=== PATIENT | male | born 1995 | race Two or more races ===

== ENCOUNTER 2025-01-20 11:25 | Emergency (ER) | payer BC, OTHER ==
[~2025-01-20] VITALS: Ht 172.7 cm; Wt 85.0 kg
[2025-01-20] MEDS: SODIUM CHLORIDE 0.9% 1,000 ML IV ONE (12:09)
[2025-01-20] MEDS: ACETAMINOPHEN 325 MG TAB PO ONE (12:10)
[2025-01-20] MEDS: KETOROLAC TROMETH 30 MG/ML 1ML VIAL IV ONE (12:10)
[2025-01-20] MEDS: ONDANSETRON HCL 4 MG/2 ML VIAL IV ONE (12:10)
--- NOTE | 2025-01-20 12:10 | ED.PDOC ---
History of Present Illness HPI Comments 29 year old male presents to the ER with the chief complaint of the fever. Patient reports having had N/V, fever, sore throat, and body aches for the past four days. Patient states on take [id number] medications with no relief and going into the triage for which had a heart rate of 147. Patient notes having family members at home with flu-like symptoms. Social history of occasional alcohol use. Denies any other symptoms at this time. Denies chills, /D, SOB, CP. No other associated symptoms, modifiers, recent injuries or sick contacts present at this time. Chief Complaint: Fever Time Seen by MD: 11:45 Reviewed Notes: Nurses Notes, Medications, Allergies Allergies: Coded Allergies: NO KNOWN ALLERGIES (Unverified , 01/20/25) Information Source: Patient Mode of Arrival: Ambulatory Severity: Moderate Timing: Days Duration: Since onset, Days Prehospital treatment: None Past Medical History PAST MEDICAL HISTORY: Denies Surgical History: Denies all surgeries Family History Family History: Reviewed,noncontributory to illness, Unknown Social History Smoker: Non-Smoker Alcohol: Denies ETOH Use Drugs: Denies Drug Use Lives In: Home Constitutional: reports: fever, others (Body aches); denies: chills, diaphoresis, fatigue, malaise, sweats, weakness EENTM: reports: throat swelling; denies: blurred vision, double vision, ear bleeding, ear discharge, ear drainage, ear pain, ear ringing, eye pain, eye redness, hearing loss, mouth pain, mouth swelling, nasal discharge, nose bleeding, nose congestion, nose pain, photophobia, tearing, throat pain, voice changes, others Respiratory: denies: cough, hemoptysis, orthopnea, SOB at rest, shortness of breath, SOB with excertion, stridor, wheezing, others Cardiovascular: denies: chest pain, dizzy spells, diaphoresis, Dyspnea on exertion, edema, irregular heart beat, left arm pain, lightheadedness, palpitations, PND, syncope, others Gastrointestinal: reports: nausea, vomiting; denies: abdomen distended, abdominal pain, blood streaked bowels, constipated, diarrhea, dysphagia, difficulty swallowing, hematemesis, melena, poor appetite, poor fluid intake, rectal bleeding, rectal pain, others Genitourinary: denies: burning, dysuria, flank pain, frequency, hematuria, incontinence, penile discharge, penile sore, pain, testicle pain, testicle swelling, urgency, others Neurological: denies: dizziness, fainting, headache, left sided numbness, left sided weakness, numbness, paresthesia, pre-existing deficit, right sided numbness, right sided weakness, seizure, speech problems, tingling, tremors, weakness, others Musculoskeletal: denies: back pain, gout, joint pain, joint swelling, muscle pain, muscle stiffness, neck pain, others Integumetry: denies: bruises, change in color, change in hair/nails, dryness, laceration, lesions, lumps, rash, wounds, others Allergic/Immunocompromised: denies: Difficulty Healing, Frequent Infections, Hives, Itching, others Hematologic/Lymphatic: denies: anemia, blood clots, easy bleeding, easy b ruising, swollen glands, others Endocrine: denies: excessive hunger, excessive sweating, excessive thirst, excessive urination, flushing, intolerance to cold, intolerance to heat, unexplained weight gain, unexplained weight loss, others Psychiatric: denies: anxiety, bipolar disorder, depression, hopeless, panic disorder, schizophrenia, sleepless, suicidal, others All Other Systems: Reviewed and Negative Physical Exam Exam Comments Tachycardic, erythema to the left tonsil General Appearance: No Apparent Distress, Normal HEENT: Normal ENT Inspection, Pharynx Normal, TMs Normal Neck: Full Range of Motion, Non-Tender, Normal, Normal Inspection Respiratory: Chest Non-Tender, Lungs Clear, No Accessory Muscle Use, No Respiratory Distress, Normal Breath Sounds Cardiovascular: No Edema, No JVD, No Murmur, No Gallop, Normal Peripheral Pulses, Regular Rate/Rhythm Breast Exam: Deferred Gastrointestinal: No Organomegaly, Non Tender, No Pulsatile Mass, Normal Bowel Sounds, Soft Genitalia: Deferred Pelvic: Deferred Rectal: Deferred Extremities: No calf tenderness, Normal capillary refill, Normal inspection, Normal range of motion, Non-tender, No pedal edema Musculoskeletal : Apperance: Normal Neurologic: Alert, sous chef II-XII nml as Tested, No Motor Deficits, Normal Affect, Normal Mood, No Sensory Deficits Cerebellar Function: Normal Reflexes: Normal Skin: Dry, Normal Color, Warm Lymphatic: No Adenopathy Was a procedure done? Was a procedure done?: No EKG EKG : Pulse Rate (adult): 121 [place]: Normal Cardiac Rhythm: ST Block: None Hypertrophy: None ST: Normal Differential Dx Considerations may include: Viral syndrome, pneumonia, generalized weakness X-Ray, Labs, Meds, VS Vital Signs Date Time Temp Pulse Resp B/P (MAP) Pulse Ox O2 Delivery O2 Flow Rate FiO2 01/20/25 15:29 98.6 99 18 127/87 (100) 98 98.6 01/20/25 12:17 Room Air* 0 21 01/20/25 12:16 102.3 126 20 145/97 (113) 98 102.3 01/20/25 12:10 102.3 01/20/25 12:10 121 01/20/25 11:50 121 01/20/25 11:26 98.5 147 18 161/102 100 98.5 Lab Test 01/20/25 12:20 Range/Units Influenza Type A Antigen Negative Negative Influenza Type B Antigen Negative Negative Current Medications Medications (Trade) Dose Ordered Sig/Sonu Route Start Time Stop Time Status Last Admin Sodium Chloride 1,000 ml @ 1,000 mls/hr Q1H ONCE IV 01/20/25 12:00 01/20/25 12:59 DC 01/20/25 12:09 Ondansetron HCl (Zofran) 4 mg ONCE ONCE IV 01/20/25 12:00 01/20/25 12:01 DC 01/20/25 12:10 Ketorolac Tromethamine (Toradol Injection) 15 mg ONCE ONCE IV 01/20/25 12:00 01/20/25 12:01 DC 01/20/25 12:10 Acetaminophen (Tylenol Tablet) 650 mg ONCE ONCE PO 01/20/25 12:00 01/20/25 12:01 DC 01/20/25 12:10 Dexamethasone Sodium Phosphate (Decadron Injection) 10 mg ONCE ONCE IV 01/20/25 12:00 01/20/25 12:01 DC 01/20/25 12:10 Time of 1ST Reevaluation: 12:15 Reevaluation 1ST: Unchanged Patient Education/Counseling: Diagnosis, Treatment, Prognosis Family Education/Counseling: No Family Present SEPSIS Sepsis Screen Date sepsis recognized/suspect: Jan 20, 2025 Time Sepsis recognized/suspect: 1129 Recent Procedure: No On Antibiotic Therapy: No Respiratory Rate >20: No Heart Rate >90: Yes Temp<36 C (96.8 F) or >38.3 C: No SBP <90 or MAP <65 mmHG: No New Acute Mental Status Change: No Is the patient on CPAP, BIPAP,: No Physician Orders Electrocardigram (01/20/25 11:31) Chest Portable (01/20/25 11:54) Vital Signs Date Time Temp Pulse Resp B/P (MAP) Pulse Ox O2 Delivery O2 Flow Rate FiO2 01/20/25 15:29 98.6 99 18 127/87 (100) 98 98.6 01/20/25 12:17 Room Air* 0 21 01/20/25 12:16 102.3 126 20 145/97 (113) 98 102.3 01/20/25 12:10 102.3 01/20/25 12:10 121 01/20/25 11:50 121 01/20/25 11:26 98.5 147 18 161/102 100 98.5 Medications Medications Dose Ordered Sig/Sonu Route Start Time Stop Time Status Last Admin Dose Admin Acetaminophen 650 mg ONCE ONCE PO 01/20/25 12:00 01/20/25 12:01 DC 01/20/25 12:10 Dexamethasone Sodium Phosphate 10 mg ONCE ONCE IV 01/20/25 12:00 01/20/25 12:01 DC 01/20/25 12:10 Ketorolac Tromethamine 15 mg ONCE ONCE IV 01/20/25 12:00 01/20/25 12:01 DC 01/20/25 12:10 Ondansetron HCl 4 mg ONCE ONCE IV 01/20/25 12:00 01/20/25 12:01 DC 01/20/25 12:10 Sodium Chloride 1,000 ml @ 1,000 mls/hr Q1H ONCE IV 01/20/25 12:00 01/20/25 12:59 DC 01/20/25 12:09 Departure 1 Departure Time of Disposition: 16:37 (Patient likely with viral syndrome. Patient's workup has been done. We will discharge patient home with follow up) Impression: Primary Impression: Acute viral syndrome Additional Impression: Pharyngitis Disposition: HOME / SELF CARE / HOMELESS Condition: Stable Additional Instructions: You likely have a viral illness. It is important to stay well rested and well hydrated. You can take Tylenol and Motrin as needed for pain and fever. For a sore throat you can drink warm tea with honey. You can take [id number] pseudoephedrine for nasal congestion. He should follow up with your regular doctor within 1 week to ensure you are doing better. If your symptoms worsen or you have any other concerns please return to the emergency room. Discharged With: Self Critical Care Note Critical Care Time?: No Stability Stability form required: No I personally scribed for JASE UNDERWOOD MD ([email or web address]) on 01/20/25 at 12:10. Electronically submitted by Seven Florez ([email or web address]). JASE UNDERWOOD MD Jan 20, 2025 12:10
--- NOTE | 2025-01-20 12:17 | DVH ---
XY CHEST PORTABLE, HISTORY: cough COMPARISON: None None TECHNICAL DATA: 1 view of the chest was obtained. FINDINGS: Lines and tubes: None Cardiomediastinal silhouette: normal Pulmonary vasculature: normal Lung expansion: normal Lung airspace: normal Lung interstitium: normal Pleura: normal Pneumothorax: no Bones: Unremarkable Other: no IMPRESSION: No acute intrathoracic abnormality.
[2025-01-20 16:47] VITALS: BP 132/98; PULSE 87; RESP 16; TEMP 98.7; O2SAT 98
--- NOTE | 2025-01-21 11:13 | ECG ---
[facility] Test Date: 2025-01-20 Test Time: 11:50:30 Pat Name: PHILLIP SELF Department: ED Room: Gender: M Research Scientist: MEGHAN : 1995 Requested By: JASE UNDERWOOD Order Number: [id number] Reading MD: Blake Mayorga Measurements Intervals [place] Rate: 121 P: 67 AK: 152 QRS: -14 QRSD: 88 T: 51 QT: 279 QTc: 396 Interpretive Statements Sinus tachycardia Probable left atrial enlargement RSR' in V1 or V2, right VCD or RVH Electronically Signed On 01-22-2025 17:55:17 PST by Blake Mayorga Please click the below link to view image of tracing.
== END 2025-01-20 16:48 | disposition home or self-care (01) ==
LOC: ER 11:25
DX: B34.9 Viral infection, unspecified (principal); J02.9 Acute pharyngitis, unspecified; Z20.822 Contact with and (suspected) exposure to COVID-19; Z79.899 Other long term (current) drug therapy
CPT/HCPCS: 71045; 87804; 93005; 96361; 96374; 96375; 99285; J1100; J1885; J2405; J7030

== ENCOUNTER 2025-01-22 12:49 | Emergency (ER) | payer BC ==
[~2025-01-22] VITALS: Ht 172.7 cm; Wt 82.2 kg
[2025-01-22] MEDS: LIDOCAINE VISCOUS 2% 15ML UD PO ONE (14:00)
[2025-01-22] MEDS ORDERED: PRED20TA2 PO (14:01)
[2025-01-22] MEDS ORDERED: LIDO2SOL18 MT (14:01)
[2025-01-22] MEDS ORDERED: IBUP-1455 PO (14:01)
--- NOTE | 2025-01-22 14:01 | ED.PDOC ---
Eye-HPI HPI Comments See triage note Chief Complaint: Sore Throat Time Seen by MD: 13:08 Allergies: Coded Allergies: NO KNOWN ALLERGIES (Unverified , 01/20/25) Home Meds Active Scripts Ibuprofen Micronized (Ibuprofen) 800 Mg Tab, 800 MG PO TIDPRN PRN for 10 Days, #30 TAB 0 Refills Prov:IRMA ABBOTT POSTPARTUM RN 01/22/25 Lidocaine Hcl (Lidocaine Viscous) 2 % Marisa, 15 ML MT TID for 10 Days, #450 ML 0 Refills Prov:IRMA ABBOTT POSTPARTUM RN 01/22/25 Prednisone (Prednisone) 20 Mg Tab, 40 MG PO DAILY for 5 Days, #10 TAB 0 Refills Prov:IRMA ABBOTT POSTPARTUM RN 01/22/25 Mode of Arrival: Ambulatory Past Medical History PAST MEDICAL HISTORY: Denies Surgical History: Denies all surgeries Family History Family History: Reviewed,noncontributory to illness, Unknown Social History Smoker: Non-Smoker Alcohol: Denies ETOH Use Drugs: Denies Drug Use Lives In: Home All Other Systems: Reviewed and Negative (PER HPI) Physical Exam General Appearance: No Apparent Distress, Normal HEENT: Normal ENT Inspection, Pharynx Normal, TMs Normal Neck: Full Range of Motion, Non-Tender, Normal, Normal Inspection Respiratory: Chest Non-Tender, Lungs Clear, No Accessory Muscle Use, No Respiratory Distress, Normal Breath Sounds Cardiovascular: No Edema, No JVD, No Murmur, No Gallop, Normal Peripheral P ulses, Regular Rate/Rhythm Breast Exam: Deferred Gastrointestinal: No Organomegaly, Non Tender, No Pulsatile Mass, Normal Bowel Sounds, Soft Genitalia: Deferred Pelvic: Deferred Rectal: Deferred Extremities: No calf tenderness, Normal capillary refill, Normal inspection, Normal range of motion, Non-tender, No pedal edema Musculoskeletal : Apperance: Normal Neurologic: Alert, tax services manager II-XII nml as Tested, No Motor Deficits, Normal Affect, Normal Mood, No Sensory Deficits Cerebellar Function: Normal Reflexes: Normal Skin: Dry, Normal Color, Warm Lymphatic: No Adenopathy Was a procedure done? Was a procedure done?: No EENT DIFF Eye: Other Sore Throat: Viral Pharyngitis, URI, Other X-Ray, Labs, Meds, VS Vital Signs Date Time Temp Pulse Resp B/P (MAP) Pulse Ox O2 Delivery O2 Flow Rate FiO2 11/18/25 15:12 78 17 98 Room Air 01/22/25 15:12 98.7 78 16 142/89 (106) 97 98.7 01/22/25 13:07 97.5 105 20 136/102 98 97.5 X-Ray, Labs, Meds, VS Comment Patient with herpangina (cannot exclude early stomatitis). Good oral intake while clinician in room. Smiling, alert and playful with examiner. Oral lesions without evidence of airway compromise. Fully immunized and non-toxic appearing with good urine o utput. Time of 1ST Reevaluation: 13:45 Reevaluation 1ST: Improved Patient Education/Counseling: Diagnosis, Treatment Family Education/Counseling: Diagnosis, Treatment SEPSIS Sepsis Screen Date sepsis recognized/suspect: Jan 22, 2025 Time Sepsis recognized/suspect: 131 Recent Procedure: No On Antibiotic Therapy: No Respiratory Rate >20: No Heart Rate >90: Yes Temp<36 C (96.8 F) or >38.3 C: No SBP <90 or MAP <65 mmHG: No New Acute Mental Status Change: No Is the patient on CPAP, BIPAP,: No Vital Signs Date Time Temp Pulse Resp B/P (MAP) Pulse Ox O2 Delivery O2 Flow Rate FiO2 01/22/25 15:12 78 17 98 Room Air 01/22/25 15:12 98.7 78 16 142/89 (106) 97 98.7 01/22/25 13:07 97.5 105 20 136/102 98 97.5 Departure 1 Departure Time of Disposition: 13:58 Impression: Primary Impression: Herpangina Disposition: 01 HOME / SELF CARE / HOMELESS Condition: Stable e-Prescriptions Ibuprofen Micronized (Ibuprofen) 800 Mg Tab 800 MG PO TIDPRN PRN for 10 Days, #30 TAB 0 Refills Prov: IRMA ABBOTT POSTPARTUM RN 01/22/25 Lidocaine Hcl (Lidocaine Viscous) 2 % Marisa 15 ML MT TID for 10 Days, #450 ML 0 Refills Prov: IRMA ABBOTT POSTPARTUM RN 01/22/25 Prednisone (Prednisone) 20 Mg Tab 40 MG PO DAILY for 5 Days, #10 TAB 0 Refills Prov: IRMA ABBOTT POSTPARTUM RN 01/22/25 Critical Care Note Critical Care Time?: No Stability Stability form required: No Heart Score Heart Score: Heart Score Response (Comments) Value History N/A 0 EKG N/A 0 Age N/A 0 Risk Factors N/A 0 Troponin N/A 0 Total 0 IRMA ABBOTT POSTPARTUM RN Jan 22, 2025 14:01
[2025-01-22 15:12] VITALS: BP 142/89; PULSE 78; RESP 17; TEMP 98.7; O2SAT 98
== END 2025-01-22 15:14 | disposition home or self-care (01) ==
LOC: ER 12:49
DX: B08.5 Enteroviral vesicular pharyngitis (principal); Z79.899 Other long term (current) drug therapy
CPT/HCPCS: 96372; 99283; J1100